=== PATIENT | female | born 1990 | race Caucasian/White ===

== ENCOUNTER 2016-05-05 10:32 | Emergency (ER) ==
[2016-05-05 10:51] VITALS: BP 123/65; TEMP 99.3; BMI 25.8
--- NOTE | 2016-05-05 11:15 | ED.PDOC ---
General ED Provider: Dr. VENU SÁNCHEZ JR Chief Complaint: Headache Stated Complaint: C/o migraine H/A. Frontal pain behind eyes. Pt states during pregnancies. Is currently 34 weeks . contact [employer] [facility]. Office closed. On-call nurse pt to ER. [ End ]99.3 105 20 98% 123/65 /10. Tylenol, last dose 6 or 7 this AM. Not helping. 34 weeks. Promethazine HCl 25 mg 04/05/16. Sodium Chloride IV. Morphine 4 mg 07/17. Morphine 4 Mg IM 02/26/16 10:11. Phenergan 25 IM 02/26/16. Pnv95/ Ferrous Fumarate/FA DAILY 11/27/15. [Diclegis Dr 10-10 mg ] 2 PO BEDTIME PRN # 8 02/26/16. [[place] 7.5-325 Tablet] 02/26/16 Time Seen by Physician: 11:09 Mode of Arrival: Walk-In Information Source: Patient Exam Limitations: No limitations Primary Care Provider: VIKTOR DSOUZA Nursing and Triage Documentation Reviewed and Agree: No Review of Systems - Review Of Systems Constitutional: Reports: No symptoms Eyes: Reports: Pain Ears, Nose, Mouth, Throat: Reports: No symptoms Respiratory: Reports: No symptoms Cardiac: Reports: No symptoms GI: Reports: No symptoms : Reports: No symptoms Musculoskeletal: Reports: No symptoms Skin: Reports: No symptoms Neurological: Reports: Headache Endocrine: Reports: No symptoms Hematologic/Lymphatic: Reports: No symptoms All Other Systems: Other Past Medical History - Past Medical History Previously Healthy: Yes Endocrine: Reports: None Cardiovascular: Reports: None Respiratory: Reports: None Hematological: Reports: None Gastrointestinal: Reports: None Genitourinary: Reports: UTI, Other (pyelonephritis-old record) Neuro/Psych: Reports: Migraine Musculoskeletal: Reports: Back Pain (with her preganacies ) Cancer: Reports: None Last Menstrual Period: 34 weeks Other Pertinent Past Medical History: skin abscess - Surgical History General Surgical History: Reports: - Family History Family History: Reports: Unknown - Social History Smoking Status: Former smoker Hx Substance Use: No Alcohol Screening: None Physical Exam - Physical Exam Appearance: Ill-appearing Pain Distress: Moderate Eyes: JOSE, EOMI, Conjunctiva clear ENT: Ears normal, Nose normal, Oropharynx normal Neck: Supple Respiratory: Airway patent, Breath sounds clear, Breath sounds equal, Respirations nonlabored, Rhonchi (has quit smoking) Cardiovascular: RRR, Pulses normal, No rub, No murmur GI/: Soft, Nontender, No masses, Bowel sounds normal, No Organomegaly, Mass ( ) Musculoskeletal: Normal strength, ROM intact, No edema, No calf tenderness Skin: Warm, Dry, Normal color Neurological: Sensation intact, Motor intact, Reflexes intact, Cranial nerves intact, Alert, Oriented Psychiatric: Affect appropriate, Mood appropriate Critical Care Note - Critical Care Note Total Time (mins): 0 Course - Course Orders, Labs, Meds: Orders Category Date Time Status Morphine Sulfate [Morphine 4 mg/ml Syringe] MEDS 05/05/16 11:17 Discontinued 4 mg IM ONCE STA Promethazine HCl [Phenergan 25 mg/ml Vial] MEDS 05/05/16 11:17 Discontinued 25 mg IM ONCE STA Medications Discontinued Medications Generic Name Dose Route Start Last Admin Trade Name Freq PRN Reason Stop Dose Admin Morphine Sulfate 4 mg 05/05/16 11:17 05/05/16 11:22 Morphine 4 Mg/Ml Syringe IM 05/05/16 11:18 4 mg ONCE STA Administration Promethazine HCl 25 mg 05/05/16 11:17 05/05/16 11:22 Phenergan 25 Mg/Ml Vial IM 05/05/16 11:18 25 mg ONCE STA Administration Vital Signs: Temp Pulse Resp BP Pulse Ox 05/05/16 10:34 99.3 F 105 H 20 123/65 98 Departure - Departure Time of Disposition: 11:19 Disposition: HOME SELF-CARE Discharge Problem: Headache, Instructions: Migraine Headache (ED) Condition: Good Pt referred to PMD for follow-up: Yes Additional Instructions: call OB in morning for follow up - recommend travel to office tomorrow for medications to treat headaches return if mental changes if headache not improved or if fever over 101.0 may follow up with OBGYN may follow up with [facility] (added norco at patient request- states OK with OBGYN) Prescriptions: Hydrocodone Bit/Acetaminophen [[place] 7.5-325] 1 each PO Q6HR PRN #14 tablet PRN Reason: Severe Pain Allergies/Adverse Reactions: Allergies No Known Allergies Allergy (Verified 05/05/16 10:44) Home Medications: Ambulatory Orders Pnv95/Ferrous Fumarate/FA [ Tablet] 1 each PO DAILY 11/27/15 Butalb/Acetaminophen/Caffeine [Fioricet] 1 each PO BID PRN 04/05/16 Ranitidine HCl [Zantac] 150 mg PO DAILY PRN 04/05/16 Hydrocodone Bit/Acetaminophen [[place] 7.5-325] 1 each PO Q6HR PRN #14 tablet 06/20
[2016-05-05] MEDS ORDERED: PHENERGAN 25 MG/ML VIAL IM STA (11:17)
[2016-05-05] MEDS ORDERED: MORPHINE 4 MG/ML SYRINGE IM STA (11:17)
== END 2016-05-05 11:39 | disposition home or self-care (01) ==
LOC: ED 10:32
DX: G43.909 Migraine, unspecified, not intractable, without status migrainosus (principal); Z33.1 Pregnant state, incidental
CPT/HCPCS: 96372; 99282

== ENCOUNTER 2016-06-13 21:02 | Emergency (ER) ==
[2016-06-13 21:08] VITALS: BP 149/94; TEMP 97; BMI 22.8
--- NOTE | 2016-06-13 21:29 | ED.PDOC ---
General ED Provider: Dr. DOUGLAS ERAZO Chief Complaint: Abdominal Pain Stated Complaint: I had , the Dr Gave me some Percocets, they make me loopy, i dont want to take them. no foul smelling discharge, no fever chills Time Seen by Physician: 21:26 Mode of Arrival: Walk-In Information Source: Patient Primary Care Provider: DOUGLAS [facility] Nursing and Triage Documentation Reviewed and Agree: Yes GI Complaint Exam - Abdominal Pain Complaint/Exam Onset: Gradual Symptoms Are: Still present Timing: Constant Initial Severity: Moderate Current Severity: Mild Location of Pain: Discrete Character: Reports: Dull, Aching Aggravating: Reports: Movement, Deep breaths Alleviating: Reports: None Associated Signs and Symptoms: Denies: Diaphoresis, Fever, Cough, Chest pain, Dizziness, Back pain, Constipation, Blood in stool, Dysuria, Urinary frequency, Decreased urine output, Decreased appetite, Vaginal bleeding, Vaginal discharge , Nausea, Vomiting, Diarrhea, Sore throat, Decreased activity Surgical Obstruction Risk Factors: Reports: None Abdominal Findings: Present: Abdominal distention (surgical site looks healthy, ). Absent: Pulsatile mass Differential Diagnoses: Other (post c section pain) Review of Systems - Review Of Systems Constitutional: Reports: No symptoms Eyes: Reports: No symptoms Ears, Nose, Mouth, Throat: Reports: No symptoms Respiratory: Reports: No symptoms Cardiac: Reports: No symptoms GI: Reports: Abdomen distended, Abdominal pain : Reports: No symptoms Musculoskeletal: Reports: No symptoms Skin: Reports: No symptoms Neurological: Reports: No symptoms Endocrine: Reports: No symptoms Hematologic/Lymphatic: Reports: No symptoms All Other Systems: Reviewed and Negative Past Medical History - Past Medical History Previously Healthy: Yes Endocrine: Reports: None Cardiovascular: Reports: None Respiratory: Reports: None Hematological: Reports: None Gastrointestinal: Reports: None Genitourinary: Reports: UTI, Other (pyelonephritis-old record) Neuro/Psych: Reports: Migraine Musculoskeletal: Reports: Back Pain (with her preganacies ) Cancer: Reports: None Last Menstrual Period: 07/17 Other Pertinent Past Medical History: skin abscess - Surgical History General Surgical History: Reports: (3-4 days ago) - Family History Family History: Reports: Unknown - Social History Smoking Status: Current some day smoker Smoking Cessation Counseling Time: > 3 min - 10 min Hx Substance Use: No Alcohol Screening: None - Immunizations Tetanus Shot up to Date: Yes Physical Exam - Physical Exam Appearance: Well-appearing Eyes: JOSE, EOMI, Conjunctiva clear ENT: Ears normal, Nose normal, Oropharynx normal Respiratory: Airway patent, Breath sounds clear, Breath sounds equal, Respirations nonlabored Cardiovascular: RRR, Pulses normal, No rub, No murmur GI/: Soft, Tender (surgical site is healthy, ) Musculoskeletal: Normal strength, ROM intact, No edema, No calf tenderness Skin: Warm, Dry, Normal color Neurological: Sensation intact, Motor intact, Reflexes intact, Cranial nerves intact, Alert, Oriented Psychiatric: Affect appropriate, Mood appropriate Critical Care Note - Critical Care Note Total Time (mins): 0 Course - Course Orders, Labs, Meds: Orders Category Date Time Status Hydrocodone Bit/Acetaminophen [[place] 5-325] MEDS 06/13/16 21:31 Discontinued 1 tab PO ONCE STA Medications Discontinued Medications Generic Name Dose Route Start Last Admin Trade Name Freq PRN Reason Stop Dose Admin Acetaminophen/Hydrocodone Bitart 1 tab 06/13/16 21:31 06/13/16 21:38 [place] 5-325 PO 06/13/16 21:32 1 tab ONCE STA Administration Vital Signs: Temp Pulse Resp BP Pulse Ox 06/13/16 21:04 97.0 F L 102 H 20 149/94 H 98 Departure - Departure Time of Disposition: 21:33 Disposition: HOME SELF-CARE Discharge Problem: Abdominal pain Instructions: Abdominal Pain (ED) Condition: Stable Pt referred to PMD for follow-up: Yes Additional Instructions: refused to have ct abdomen pelvis, she thinks its regular post surgical pain, please do not mix pain medications If pain is not better, and started having foul smelling discharge please come back Prescriptions: Hydrocodone/Acetaminophen [[place] 5-325 Tablet] 1 tab PO TID PRN #12 tablet PRN Reason: PAIN Allergies/Adverse Reactions: Allergies No Known Allergies Allergy (Verified 05/05/16 10:44) Home Medications: Ambulatory Orders Pnv95/Ferrous Fumarate/FA [ Tablet] 1 each PO DAILY 11/27/15 Hydrocodone/Acetaminophen [[place] 5-325 Tablet] 1 tab PO TID PRN #12 tablet 06/13 Oxycodone HCl/Acetaminophen [Percocet 10-325 mg Tablet] 1 mg PO PRN PRN Disposition Discussed With: Patient
[2016-06-13] MEDS ORDERED: NORCO 5-325 PO STA (21:31)
== END 2016-06-13 22:39 | disposition home or self-care (01) ==
LOC: ED 21:02
DX: R10.9 Unspecified abdominal pain (principal); Z98.890 Other specified postprocedural states; F17.210 Nicotine dependence, cigarettes, uncomplicated
CPT/HCPCS: 99282

== ENCOUNTER 2016-07-02 19:29 | Emergency (ER) ==
[2016-07-02 19:30] VITALS: BMI 22.8
[2016-07-02 19:33] VITALS: BP 135/75; TEMP 98.2
[2016-07-02] MEDS ORDERED: MOTRIN PO STA (19:52)
--- NOTE | 2016-07-02 20:23 | ED.PDOC ---
General ED Provider: Dr. MEETA MTZ Chief Complaint: Foot Pain/Injury Stated Complaint: Patient states she kicked the door this morning when she got angry. Pain has gotten worse with ambulation. Time Seen by Physician: 19:45 Mode of Arrival: Walk-In Information Source: Patient Exam Limitations: No limitations Primary Care [facility] Nursing and Triage Documentation Reviewed and Agree: Yes Review of Systems - Review Of Systems Constitutional: Reports: No symptoms Eyes: Reports: No symptoms Ears, Nose, Mouth, Throat: Reports: No symptoms Respiratory: Reports: No symptoms Cardiac: Reports: No symptoms GI: Reports: No symptoms : Reports: No symptoms Musculoskeletal: Reports: Joint pain Skin: Reports: No symptoms Neurological: Reports: No symptoms Endocrine: Reports: No symptoms Hematologic/Lymphatic: Reports: No symptoms All Other Systems: Reviewed and Negative Past Medical History - Past Medical History Previously Healthy: Yes Endocrine: Reports: None Cardiovascular: Reports: None Respiratory: Reports: None Hematological: Reports: None Gastrointestinal: Reports: None Genitourinary: Reports: UTI, Other (pyelonephritis-old record) Neuro/Psych: Reports: Migraine Musculoskeletal: Reports: Back Pain (with her preganacies ) Cancer: Reports: None Last Menstrual Period: BLEEDING FROM Other Pertinent Past Medical History: skin abscess - Surgical History General Surgical History: Reports: (3-4 days ago) - Family History Family History: Reports: Unknown - Social History Smoking Status: Current some day smoker Hx Substance Use: No Alcohol Screening: None Physical Exam - Physical Exam Appearance: Well-appearing Pain Distress: Moderate Neck: Supple Respiratory: Airway patent, Breath sounds clear, Breath sounds equal, Respirations nonlabored Cardiovascular: RRR, Pulses normal, No rub, No murmur GI/: Soft, Nontender, No masses, Bowel sounds normal, No Organomegaly Musculoskeletal: Limited strength, Edema Skin: Warm, Dry, Normal color Neurological: Sensation intact, Motor intact, Reflexes intact, Cranial nerves intact, Alert, Oriented Psychiatric: Anxious Interpretation - Radiology Interpretation Radiology Interpretation By: ED Physician Radiology Results: Negative Exam Interpreted: Other (foot x ray ) Critical Care Note - Critical Care Note Total Time (mins): 0 Course - Course Orders, Labs, Meds: Orders Category Date Time Status Ibuprofen [Motrin] MEDS 07/02/16 19:52 Discontinued 800 mg PO ONCE STA FOOT, RIGHT 3 VIEWS Stat RADS 07/02/16 19:52 Taken Medications Discontinued Medications Generic Name Dose Route Start Last Admin Trade Name Freq PRN Reason Stop Dose Admin Ibuprofen 800 mg 07/02/16 19:52 07/02/16 20:12 Motrin PO 07/02/16 19:53 800 mg ONCE STA Administration Vital Signs: Temp Pulse Resp BP Pulse Ox 07/02/16 19:30 98.2 F 96 H 18 135/75 97 Departure - Departure Time of Disposition: 20:20 Disposition: HOME SELF-CARE Discharge Problem: Injury of foot Instructions: Foot Sprain (ED) Condition: Good Pt referred to PMD for follow-up: Yes Additional Instructions: Keep foot elevated Follow up with PCP in 3 days Prescriptions: Meloxicam [Mobic] 15 mg PO DAILY PRN #14 tablet PRN Reason: foot pain Allergies/Adverse Reactions: Allergies No Known Allergies Allergy (Verified 07/02/16 19:33) Home Medications: Ambulatory Orders Meloxicam [Mobic] 15 mg PO DAILY PRN #14 tablet 07/02/16 Disposition Discussed With: Patient
--- NOTE | 2016-07-03 07:19 | DI ---
EXAM: Radiographs, right foot HISTORY: Initial presentation for right foot trauma. COMPARISON: None available. TECHNIQUE: Three views. FINDINGS: Bone mineralization is normal. There is no fracture or dislocation. The joint spaces ar e maintained. No focal soft tissue abnormality is seen. IMPRESSION: No fracture or dislocation.
== END 2016-07-02 20:39 | disposition home or self-care (01) ==
LOC: ED 19:29
DX: S99.921A Unspecified injury of right foot, initial encounter (principal); M79.671 Pain in right foot; W22.8XXA Striking against or struck by other objects, initial encounter; F17.210 Nicotine dependence, cigarettes, uncomplicated
CPT/HCPCS: 99283

== ENCOUNTER 2016-07-08 11:01 | Emergency (ER) ==
[2016-07-08 11:09] VITALS: BP 113/76; TEMP 97.9; BMI 21.2
--- NOTE | 2016-07-08 11:53 | ED.PDOC ---
General ED Provider: Dr. KATELYN DIETRICH Chief Complaint: Headache Stated Complaint: headache Time Seen by Physician: 11:00 Mode of Arrival: Walk-In Information Source: Patient, Family Exam Limitations: No limitations [facility] Nursing and Triage Documentation Reviewed and Agree: Yes Neurological Complaint Exam - Headache Complaint/Exam Onset: Gradual Duration: 1 day Symptoms Are: Still present Timing: Constant Episodes Lasting: Hours Worst Headache Ever: No Initial Severity: Moderate Location: Frontal, Temporal Character: Reports: Throbbing Aggravating: Reports: None Alleviating: Reports: None Associated Signs and Symptoms: Denies: Dizziness, Seizure, Nausea, Vomiting, Sinus pressure, Fever, Neck pain, Neck stiffness, Decreased LOC, Visual changes Related History: Reports: Similar episode Related Surgical History: Reports: None SAH Risk Factors: Reports: None Meningitis Risk Factors: Reports: None SDH Risk Factors: Reports: None Temporal Arteritis Risk Factors: Reports: None Normal Head CT Within Last 12 Months: No Papilledema Present: No Temporal Artery Tenderness: Present: None Sinus Tenderness: Present: None TMJ Tenderness: Present: None Glascow Coma Scale (see protocol): 15 Meningeal Signs Positive: No Pain on Passive Flexion-Positive Kernig's: No ROM Limited In: No Limitiations Focal Weakness: Present: None Focal Sensory Loss: Present: None Gait: Normal Gag Reflex Present: Yes Babinski Sign: Negative Right, Negative Left Differential Diagnoses: Migraine Review of Systems - Review Of Systems Constitutional: Reports: No symptoms Eyes: Reports: No symptoms Ears, Nose, Mouth, Throat: Reports: No symptoms Respiratory: Reports: No symptoms Cardiac: Reports: No symptoms GI: Reports: No symptoms : Reports: No symptoms Musculoskeletal: Reports: No symptoms Skin: Reports: No symptoms Neurological: Reports: Headache Endocrine: Reports: No symptoms Hematologic/Lymphatic: Reports: No symptoms All Other Systems: Reviewed and Negative Past Medical History - Past Medical History Previously Healthy: Yes Endocrine: Reports: None Cardiovascular: Reports: None Respiratory: Reports: None Hematological: Reports: None Gastrointestinal: Reports: None Genitourinary: Reports: UTI, Other (pyelonephritis-old record) Neuro/Psych: Reports: Migraine Musculoskeletal: Reports: Back Pain (with her preganacies ) Cancer: Reports: None Last Menstrual Period: 06/20 Other Pertinent Past Medical History: skin abscess - Surgical History General Surgical History: Reports: (3-4 days ago) - Family History Family History: Reports: Unknown - Social History Smoking Status: Current some day smoker Hx Substance Use: No Alcohol Screening: None - Immunizations Tetanus Shot up to Date: Yes Physical Exam - Physical Exam Appearance: Well-appearing, No pain distress, Well-nourished Eyes: JOSE, EOMI, Conjunctiva clear ENT: Ears normal, Nose normal, Oropharynx normal Respiratory: Airway patent, Breath sounds clear, Breath sounds equal, Respirations nonlabored Cardiovascular: RRR, Pulses normal, No rub, No murmur GI/: Soft, Nontender, No masses, Bowel sounds normal, No Organomegaly Musculoskeletal: Normal strength, ROM intact, No edema, No calf tenderness Skin: Warm, Dry, Normal color Neurological: Sensation intact, Motor intact, Reflexes intact, Cranial nerves intact, Alert, Oriented Psychiatric: Affect appropriate, Mood appropriate Critical Care Note - Critical Care Note Total Time (mins): 0 Course - Course Vital Signs: Temp Pulse Resp BP Pulse Ox 07/08/16 11:03 97.9 F 98 H 20 113/76 97 Departure - Departure Time of Disposition: 11:52 Disposition: HOME SELF-CARE Discharge Problem: Headache Instructions: Acute Headache (ED) Condition: Good Pt referred to PMD for follow-up: No Additional Instructions: Please call your Family Physician as soon as possible to schedule a follow-up appointment. Allergies/Adverse Reactions: Allergies No Known Allergies Allergy (Verified 07/02/16 19:33) Disposition Discussed With: Patient, Family
== END 2016-07-08 12:06 | disposition home or self-care (01) ==
LOC: ED 11:01
DX: R51 Headache (principal); F17.210 Nicotine dependence, cigarettes, uncomplicated
CPT/HCPCS: 99282

== ENCOUNTER 2016-08-07 21:18 | Emergency (ER) ==
[2016-08-07 21:24] VITALS: BP 118/80; TEMP 97.1; BMI 22.8
--- NOTE | 2016-08-07 21:29 | ED.PDOC ---
General ED Provider: Dr. VIKTOR DSOUZA-ER Chief Complaint: Tooth Problem Stated Complaint: she notes having pain--for 2 days Time Seen by Physician: 21:20 Mode of Arrival: Walk-In Information Source: Patient Exam Limitations: No limitations [facility] and Triage Documentation Reviewed and Agree: Yes EENT Complaint Exam - Dental/Oral Complaint/Exam Mechanism of Injury: No known trauma Onset/Duration: 2 days Symptoms Are: Still present Timing: Constant Initial Severity: Mild Current Severity: Moderate Location: left upper premolar Character: Reports: Dull, Aching, Throbbing Aggravating: Reports: Heat, Cold Alleviating: Reports: None Associated Signs and Symptoms: Reports: Discharge. Denies: Swelling, Fever, Foul odor, Foul taste in mouth Related History: Reports: Similar episode Cardiac Risk Factors: Reports: None, Smoking Dental/Oral Surgical History: Reports: None Tooth Findings: Present: Percussion tenderness, Gross caries Cervical Lymphadenopathy Present: No Facial Swelling Present: No Bleeding Present: No Oropharynx Findings: Absent: Clots, Active bleeding Septal Hematoma: No Foreign Body Present: No Dysphagia Present: No Drooling Present: No Asymmetrical Tonsillar Swelling Present: No Uvula Midline: Yes Gwendolyn-tonsillar Fluctuence: No Trismus Present: No Palatal Petechiae Present: No Scarlatinaform Rash Present: No Differential Diagnoses: Dental Abcess Review of Systems - Review Of Systems Constitutional: Reports: No symptoms Eyes: Reports: No symptoms Ears, Nose, Mouth, Throat: Reports: Mouth pain Respiratory: Reports: No symptoms Cardiac: Reports: No symptoms GI: Reports: No symptoms : Reports: No symptoms Musculoskeletal: Reports: No symptoms Skin: Reports: No symptoms Neurological: Reports: No symptoms Endocrine: Reports: No symptoms Hematologic/Lymphatic: Reports: No symptoms All Other Systems: Reviewed and Negative Past Medical History - Past Medical History Previously Healthy: Yes Endocrine: Reports: None Cardiovascular: Reports: None Respiratory: Reports: None Hematological: Reports: None Gastrointestinal: Reports: None Genitourinary: Reports: UTI, Other (pyelonephritis-old record) Neuro/Psych: Reports: Migraine Musculoskeletal: Reports: Back Pain (with her preganacies ) Cancer: Reports: None Last Menstrual Period: present Other Pertinent Past Medical History: skin abscess - Surgical History General Surgical History: Reports: (3-4 days ago) - Family History Family History: Reports: Unknown - Social History Smoking Status: Current some day smoker Hx Substance Use: No Alcohol Screening: None Lives: With family - Immunizations Tetanus Shot up to Date: Yes Physical Exam - Physical Exam Appearance: Well-appearing, No pain distress, Well-nourished Pain Distress: Moderate Eyes: JOSE, EOMI, Conjunctiva clear ENT: Ears normal, Nose normal Neck: Supple Respiratory: Airway patent Cardiovascular: RRR GI/: Soft, Nontender, No masses, Bowel sounds normal, No Organomegaly Musculoskeletal: Normal strength, ROM intact, No edema, No calf tenderness Skin: Warm, Dry, Normal color Neurological: Sensation intact, Motor intact, Reflexes intact, Cranial nerves intact, Alert, Oriented Psychiatric: Affect appropriate, Mood appropriate Critical Care Note - Critical Care Note Total Time (mins): 0 Course - Course Vital Signs: Temp Pulse Resp BP Pulse Ox 08/07/16 21:19 97.1 F L 99 H 20 118/80 98 Departure - Departure Time of Disposition: 21:29 Disposition: HOME SELF-CARE Discharge Problem: Toothache Instructions: Dental Abscess (ED) Condition: Good Pt referred to PMD for follow-up: Yes Additional Instructions: clindamycin 150mg tid x 7days--norco 7.5mg q 4hrs prn pain #10---see dentist heather Allergies/Adverse Reactions: Allergies No Known Allergies Allergy (Verified 08/07/16 21:23) Home Medications: Ambulatory Orders 1 [No Reported Medications] 08/07/16 Disposition Discussed With: Patient
== END 2016-08-07 21:40 | disposition home or self-care (01) ==
LOC: ED 21:18
DX: K08.89 Other specified disorders of teeth and supporting structures (principal); K02.7 Dental root caries; F17.210 Nicotine dependence, cigarettes, uncomplicated
CPT/HCPCS: 99282

== ENCOUNTER 2016-08-19 18:04 | Emergency (ER) ==
[2016-08-19 18:10] VITALS: BP 104/74; BMI 21.7
[2016-08-19] MEDS ORDERED: TORADOL IVP STA (18:34)
[2016-08-19] MEDS ORDERED: SODIUM CHLORIDE 1,000 ML IV STA (18:34)
[2016-08-19] MEDS ORDERED: ZOFRAN 4 MG/2 ML IVP STA (18:34)
--- NOTE | 2016-08-19 18:35 | ED.PDOC ---
General ED Provider: Dr. VENU SÁNCHEZ JR Chief Complaint: Fever Stated Complaint: woke up with lower back/left side hurting and fever--taking tylenol but cant keep fever down--unable to eat-[ End ]since 299 103.3 113 20 95% 104/74 10 Time Seen by Physician: 18:35 Mode of Arrival: Walk-In Information Source: Patient Exam Limitations: No limitations [facility] Documentation Reviewed and Agree: No Review of Systems - Review Of Systems Constitutional: Reports: Chills, Fever, Malaise, Weakness Eyes: Reports: No symptoms Ears, Nose, Mouth, Throat: Reports: No symptoms Cardiac: Reports: No symptoms GI: Reports: Abdominal pain, Nausea, Vomiting : Reports: Dysuria, Frequency, Flank pain Musculoskeletal: Reports: Muscle pain Skin: Reports: No symptoms Neurological: Reports: No symptoms Endocrine: Reports: No symptoms Hematologic/Lymphatic: Reports: No symptoms All Other Systems: Other Past Medical History - Past Medical History Previously Healthy: Yes Endocrine: Reports: None Cardiovascular: Reports: None Respiratory: Reports: None Hematological: Reports: None Gastrointestinal: Reports: None Genitourinary: Reports: UTI, Other (pyelonephritis-old record) Neuro/Psych: Reports: Migraine Musculoskeletal: Reports: Back Pain (with her preganacies ) Cancer: Reports: None Last Menstrual Period: now Other Pertinent Past Medical History: skin abscess - Surgical History General Surgical History: Reports: (3-4 days ago) - Family History Family History: Reports: Unknown - Social History Smoking Status: Former smoker Hx Substance Use: No Alcohol Screening: None Physical Exam - Physical Exam Appearance: Ill-appearing, Thin Ill-appearing: Moderate Pain Distress: Moderate Eyes: JOSE, EOMI, Conjunctiva clear Neck: Supple Respiratory: Airway patent, Breath sounds clear, Breath sounds equal, Respirations nonlabored Cardiovascular: RRR, Pulses normal, No rub, No murmur GI/: Soft, Tender (LEFT SIDE EXQUISITE LENDERNESS LEFT FLANK) Musculoskeletal: Normal strength, ROM intact, No edema, No calf tenderness Skin: Warm, Dry, Normal color Neurological: Sensation intact, Motor intact, Reflexes intact, Cranial nerves intact, Alert, Oriented Psychiatric: Affect appropriate, Mood appropriate Critical Care Note - Critical Care Note Total Time (mins): 20 Course - Course Hematology/Chemistry: 08/19/16 18:33 08/19/16 18:50 Orders, Labs, Meds: Lab Review 08/19/16 08/19/16 08/19/16 18:33 18:40 18:46 WBC 11.35 H RBC 3.98 L Hgb 11.0 L Hct 34.3 L MCV 86.2 MCH 27.6 MCHC 32.1 RDW Coeff of Sophia 17.2 H Plt Count 244 Immature Gran % (Auto) 0.4 Neut % (Auto) 84.5 Lymph % (Auto) 9.2 L [place] % (Auto) 5.7 Eos % (Auto) 0.1 Baso % (Auto) 0.1 Immature Gran # (Auto) 0.1 Neut # 9.6 H Lymph # 1.0 [place] # 0.7 Eos # 0.0 Baso # 0.0 Sodium Potassium Chloride Carbon Dioxide Anion Gap BUN Creatinine Estimated GFR (MDRD) BUN/Creatinine Ratio Glucose Lactic Acid 6.2 Calcium Total Bilirubin AST ALT Alkaline Phosphatase Total Protein Albumin Globulin Albumin/Globulin Ratio Amylase Lipase Procalcitonin Urine Color Yellow Urine Clarity Slightly Urine pH 7.5 Ur Specific [place] 1.020 Urine Protein 3+ Urine Glucose (UA) Negative Urine Ketones Negative Urine Blood 2+ Urine Nitrite Negative Urine Bilirubin Negative Urine Urobilinogen 1.0 Ur Leukocyte Esterase 1+ Urine Microscopic RBC 10-20 Urine Microscopic WBC 20-30 Ur Squamous Epith Cells Not present Urine Mucus 1+ Urine Test Negative H. pylori IgG Antibody 08/19/16 18:50 WBC RBC Hgb Hct MCV MCH MCHC RDW Coeff of Sophia Plt Count Immature Gran % (Auto) Neut % (Auto) Lymph % (Auto) [place] % (Auto) Eos % (Auto) Baso % (Auto) Immature Gran # (Auto) Neut # Lymph # [place] # Eos # Baso # Sodium 136 Potassium 3.7 Chloride 101 Carbon Dioxide 24 Anion Gap 14.7 BUN 11 Creatinine 0.82 Estimated GFR (MDRD) 84.00 BUN/Creatinine Ratio 13.41 Glucose 99 Lactic Acid Calcium 9.4 Total Bilirubin 0.84 AST 57 H ALT 55 Alkaline Phosphatase 106 H Total Protein 8.4 H Albumin 3.8 Globulin 4.6 Albumin/Globulin Ratio 0.83 Amylase 61 Lipase 25 Procalcitonin 0.13 Urine Color Urine Clarity Urine pH Ur Specific [place] Urine Protein Urine Glucose (UA) Urine Ketones Urine Blood Urine Nitrite Urine Bilirubin Urine Urobilinogen Ur Leukocyte Esterase Urine Microscopic RBC Urine Microscopic WBC Ur Squamous Epith Cells Urine Mucus Urine Test H. pylori IgG Antibody Negative Orders Category Date Time Status ED IV/MEDIPORT/POWERPORT .ONCE EMERGENCY 08/19/16 18:33 Active AMYLASE Stat LAB 08/19/16 18:50 Completed BLOOD CULTURE Stat LAB 08/19/16 18:40 Received CBC W/ AUTO DIFF Stat LAB 08/19/16 18:33 Completed COMPREHENSIVE METABOLIC PANEL Stat LAB 08/19/16 18:50 Completed H. PYLORI SCREEN Stat LAB 08/19/16 18:50 Completed LACTIC ACID Stat LAB 08/19/16 18:40 Completed LIPASE Stat LAB 08/19/16 18:50 Completed PROCALCITONIN Stat LAB 08/19/16 18:50 Completed URINALYSIS C & S IF INDICATED Stat LAB 08/19/16 18:46 Completed URINE CULTURE Routine LAB 08/19/16 18:45 Received URINE Stat LAB 08/19/16 18:46 Completed 0.9 % Sodium Chloride [Saline Flush] MEDS 08/19/16 18:33 Discontinued 1 syr IVF PRN PRN Ketorolac Tromethamine [Toradol] MEDS 08/19/16 18:34 Discontinued 30 mg IVP ONCE STA Levofloxacin/D5w [Levaquin] 150 ml MEDS 08/19/16 19:18 Discontinued IV .STK-MED Levofloxacin/D5w [Levaquin] 750 mg MEDS 08/19/16 19:13 Discontinued Premix 150 ml D5w 1 bag IV ONCE Morphine Sulfate [Morphine 4 mg/ml Syringe] MEDS 08/19/16 19:23 Discontinued 4 mg .ROUTE .STK-MED ONE Morphine Sulfate [Morphine 4 mg/ml Syringe] MEDS 08/19/16 19:23 Discontinued 4 mg IVP ONCE STA Ondansetron HCl/Pf [Zofran 4 mg/2 ml] MEDS 08/19/16 18:34 Discontinued 4 mg IVP ONCE STA Sodium Chloride 0.9% [Sodium Chloride] 1,000 ml MEDS 08/19/16 18:[address] ABDOMEN/PELVIS WO CONTRAST Stat RADS 08/19/16 18:33 Completed Medications Discontinued Medications Generic Name Dose Route Start Last Admin Trade Name Freq PRN Reason Stop Dose Admin Sodium Chloride 1,000 mls @ 1,000 mls/hr 08/19/16 18:34 08/19/16 18:59 Sodium Chloride IV 08/19/16 19:33 1,000 mls/hr BOLUS STA Administration Levofloxacin/Dextrose 750 mg/ 150 mls @ 100 mls/hr 08/19/16 19:13 08/19/16 19 :30 Dextrose IV 08/19/16 20:42 100 mls/hr ONCE STA Administration Ketorolac Tromethamine 30 mg 08/19/16 18:34 08/19/16 19:03 Toradol IVP 08/19/16 18:35 30 mg ONCE STA Administration Morphine Sulfate 4 mg 08/19/16 19:23 08/19/16 19:24 Morphine 4 Mg/Ml Syringe IVP 08/19/16 19:24 4 mg ONCE STA Administration Ondansetron HCl 4 mg 08/19/16 18:34 08/19/16 19:01 Zofran 4 Mg/2 Ml IVP 08/19/16 18:35 4 mg ONCE STA Administration Sodium Chloride 1 syr 08/19/16 18:33 08/19/16 19:01 Saline Flush IVF 1 syr PRN PRN Administration To flush IV Vital Signs: Temp Pulse Resp BP Pulse Ox 08/19/16 19:56 99.5 F 08/19/16 18:05 103.3 F H 113 H 20 104/74 95 Departure - Departure Time of Disposition: 19:52 Disposition: HOME SELF-CARE Discharge Problem: Complicated UTI (urinary tract infection) Instructions: Urinary Tract Infection in Women (ED) Condition: Fair Pt referred to PMD for follow-up: Yes Additional Instructions: HOME REST INCREASE FLUIDS 8-10 EIGHT OUNCE CUPS DAILY ANTIBIOTIC UNTIL GONE (LEVAQUIN NORCO FOR PAIN ZOFRAN FOR NAUSEA CALL IF NOT COVERED MAY SUBSTITUTE PHENERGAN RETURN IF FEVER OVER 101, IF WORSENING RECHECK PMD 2 WEEKS SOONER IF NOT RESOLVED Prescriptions: Hydrocodone Bit/Acetaminophen [[place] 7.5-325] 1 each PO Q6HR PRN #14 tablet PRN Reason: Severe Pain Levofloxacin [Levaquin] 500 mg PO QDAC #10 tablet Ondansetron HCl [Zofran Tab] 4 mg PO QID PRN #12 tablet PRN Reason: Nausea / Vomiting Allergies/Adverse Reactions: Allergies No Known Allergies Allergy (Verified 08/19/16 18:11) Home Medications: Ambulatory Orders Hydrocodone Bit/Acetaminophen [[place] 7.5-325] 1 each PO Q6HR PRN #14 tablet Levofloxacin [Levaquin] 500 mg PO QDAC #10 tablet 08/19/16 Ondansetron HCl [Zofran Tab] 4 mg PO QID PRN #12 tablet 08/19/16
[2016-08-19 18:53] LABS: BILIRUBIN,URINE Negative (NEGATIVE); KETONES,URINE Negative (NEGATIVE); LEUKOCYTE ESTERASE ,URINE 1+ (NEGATIVE); NITRITE,URINE Negative (NEGATIVE); PH,URINE 7.5 (5-9); PROTEIN,URINE 3+ (NEGATIVE); URINE, BLOOD 2+ (NEGATIVE)
[2016-08-19 18:56] LABS: ADD URINE MICROSCOPIC YES; URINE PREGNANCY INTERNAL QC INTERNAL QC VALID
[2016-08-19 19:08] LABS: BASOPHILS % (AUTO) 0.1 % (0.0-3.0); EOSINOPHILS % (AUTO) 0.1 % (0.0-7.0); HEMATOCRIT 34.3 % (37.0-47.0); IMMATURE GRANULOCYTE % (AUTO) 0.4 % (0.0-5.0); LYMPHOCYTES % (AUTO) 9.2 (10.0-50.0); MEAN CORPUSCULAR HEMOGLOBIN 27.6 pg (27.0-31.0); MEAN CORPUSCULAR HGB CONC 32.1 (31.8-35.4); MEAN CORPUSCULAR VOLUME 86.2 fl (81.0-99.0); MONOCYTES # (AUTO) 0.7 K/uL (0.4-2.0); MONOCYTES % (AUTO) 5.7 (0-10); NEUTROPHILS # (AUTO) 9.6 K/ul (2.0-6.9); NEUTROPHILS % (AUTO) 84.5; PLATELET COUNT 244 10^3/uL (140-440); RED BLOOD COUNT 3.98 10^6/ul (4.20-5.40); WHITE BLOOD COUNT 11.35 K/ul (4.6-10.2)
[2016-08-19] MEDS ORDERED: LEVAQUIN 750 MG in PREMIX 150 ML D5W 1 BAG IV STA (19:13)
[2016-08-19] MEDS ORDERED: LEVAQUIN 150 ML IV ONE (19:18)
[2016-08-19 19:21] LABS: H. PYLORI ANTIBODY NEGATIVE (NEGATIVE); H.PYLORI INTERNAL QC INTERNAL QC VALID
[2016-08-19] MEDS ORDERED: MORPHINE 4 MG/ML SYRINGE ONE (19:23)
[2016-08-19] MEDS ORDERED: MORPHINE 4 MG/ML SYRINGE IVP STA (19:23)
[2016-08-19 19:29] LABS: ALBUMIN 3.8 g/dL (3.4-5.0); ALBUMIN/GLOBULIN RATIO 0.83; ANION GAP 14.7; BILIRUBIN,TOTAL 0.84 mg/dL (0.00-1.20); BUN/CREATININE RATIO 13.41; CALCIUM 9.4 mg/dL (8.2-10.2); CREATININE 0.82 mg/dL (0.60-1.30); POTASSIUM 3.7 mmol/L (3.5-5.10); TOTAL PROTEIN 8.4 g/dL (6.4-8.2)
--- NOTE | 2016-08-19 19:32 | CT ---
EXAM: CT abdomen and pelvis without contrast HISTORY: Abdominal pain TECHNIQUE: Multi-slice transaxial helical with coronal and sagittal reformed images COMPARISON: CT abdomen from 05/15/2015 FINDINGS: The lung bases are free of acute airspace or interstitial opacities. The heart size is no rmal. There are no pericardial or pleural effusions. The hepatic attenuation is normal relative to the spleen. The gallbladder is present without biliar y dilatation. The pancreas and adrenal glands are normal. The spleen has normal size and attenuati on. The kidneys and ureters are normal. The nonopacified bladder is grossly normal. There are phl eboliths in the pelvis. No adnexal masses are evident. The intestines are nondilated. The appendix is not visualized with certainty. The aorta has normal caliber. No lymphadenopathy or ascites. The bones are free of suspicious osteolytic or osteoblastic lesions. IMPRESSION: 1. Nonobstructive intestinal gas pattern. Appendix not visualized. 2. Normal renal collecting systems. 3. No lymphadenopathy or ascites.
[2016-08-19 19:56] VITALS: TEMP 99.5
== END 2016-08-19 21:18 | disposition home or self-care (01) ==
LOC: ED 18:04
DX: N39.0 Urinary tract infection, site not specified (principal)
CPT/HCPCS: 36415; 80053; 81001; 81025; 82150; 83605; 83690; 84145; 85025; 86677; 87040; 87086; 87186; 96361; 96365; 96366; 96375; 99283

== ENCOUNTER 2016-08-24 11:29 | Emergency (ER) ==
[2016-08-24 11:30] VITALS: BMI 21.2
[2016-08-24 11:37] VITALS: BP 108/65; TEMP 97.8
[2016-08-24 12:06] LABS: BASOPHILS % (AUTO) 0.5 % (0.0-3.0); EOSINOPHILS # (AUTO) 0.2 K/ul (0.0-0.7); EOSINOPHILS % (AUTO) 2.5 % (0.0-7.0); HEMOGLOBIN 9.8 g/dl (12.0-16.0); IMMATURE GRANULOCYTE % (AUTO) 0.2 % (0.0-5.0); LYMPHOCYTES # (AUTO) 2.2 K/uL (0.60-3.4); LYMPHOCYTES % (AUTO) 36.7 (10.0-50.0); MEAN CORPUSCULAR HEMOGLOBIN 27.4 pg (27.0-31.0); MEAN CORPUSCULAR HGB CONC 31.6 (31.8-35.4); MEAN CORPUSCULAR VOLUME 86.6 fl (81.0-99.0); MONOCYTES # (AUTO) 0.3 K/uL (0.4-2.0); MONOCYTES % (AUTO) 4.7 (0-10); NEUTROPHILS # (AUTO) 3.3 K/ul (2.0-6.9); NEUTROPHILS % (AUTO) 55.4; PLATELET COUNT 362 10^3/uL (140-440); RED BLOOD COUNT 3.58 10^6/ul (4.20-5.40); WHITE BLOOD COUNT 5.91 K/ul (4.6-10.2)
[2016-08-24 12:15] LABS: BILIRUBIN,URINE Negative (NEGATIVE); KETONES,URINE Negative (NEGATIVE); LEUKOCYTE ESTERASE ,URINE Negative (NEGATIVE); NITRITE,URINE Negative (NEGATIVE); PH,URINE 5.5 (5-9); PROTEIN,URINE 1+ (NEGATIVE); URINE, BLOOD Trace-intact (NEGATIVE)
[2016-08-24 12:17] LABS: URINE PREGNANCY INTERNAL QC INTERNAL QC VALID
[2016-08-24 12:22] LABS: ADD URINE MICROSCOPIC YES
[2016-08-24 12:24] LABS: BACTERIA,URINE TRACE (NOT PRESENT)
[2016-08-24 12:29] LABS: ALBUMIN 3.3 g/dL (3.4-5.0); ALBUMIN/GLOBULIN RATIO 0.83; ANION GAP 14.8; BUN/CREATININE RATIO 11.68; CALCIUM 9.4 mg/dL (8.2-10.2); CREATININE 0.77 mg/dL (0.60-1.30); POTASSIUM 3.8 mmol/L (3.5-5.10); TOTAL PROTEIN 7.3 g/dL (6.4-8.2)
--- NOTE | 2016-08-24 12:43 | CT ---
Exam: CT abdomen and pelvis without contrast. Clinical indication: Abdominal pain. No further information is provided. TECHNIQUE: Axial unenhanced CT images of the abdomen and pelvis were obtained followed by coronal a nd sagittal reformats. Comparison is made to the recent study dated 08/19/2016. Findings: The study is limited due to lack of intra-abdominal fat, IV contrast, and oral contrast. There is no free intra-abdominal gas or fluid. The liver, gallbladder, adrenals, pancreas, spleen, and kidneys are grossly unremarkable, given the limitations of the study. There are no definite enlarged abdominal or pelvic lymph nodes, by size criteria. Visualization of pelvic organs are extremely limited. The bowel is grossly unremarkable. The appendix is not visualized due to the limitations of the pancho dy. The visualized portions of lower thorax are within normal limits. The visualized bony structures are unremarkable. Impression: Grossly unremarkable CT of the abdomen pelvis, given the limitations as described above.
--- NOTE | 2016-08-24 13:00 | ED.PDOC ---
General ED Provider: Dr. KATELYN DIETRICH Chief Complaint: Urinary Problem Stated Complaint: dysuria / abdominal pain Time Seen by Physician: 11:31 Mode of Arrival: Walk-In Information Source: Patient Exam Limitations: No limitations [facility] T[facility] Documentation Reviewed and Agree: Yes GI Complaint Exam - Abdominal Pain Complaint/Exam Onset: Gradual Duration: 2 days Symptoms Are: Still present Timing: Constant Initial Severity: Moderate Current Severity: Moderate Location of Pain: LLQ, Suprapubic Character: Reports: Cramping Aggravating: Reports: None Alleviating: Reports: None Associated Signs and Symptoms: Reports: Dysuria. Denies: Diaphoresis, Fever, Cough, Chest pain, Dizziness, Back pain, Constipation, Blood in stool, Urinary frequency, Decreased urine output, Decreased appetite, Vaginal bleeding, Vaginal discharge, Nausea, Vomiting, Diarrhea, Sore throat, Decreased activity Related History: Reports: Similar episode AAA Risk Factors: Reports: None Cardiac Risk Factors: Reports: None Ectopic Risk Factors: Reports: None Ovarian Torsion Risk Factors: Reports: None Surgical Obstruction Risk Factors: Reports: None Related Surgical History: Reports: None Patient Rh Status: Unknown Abdominal Findings: Present: None Review of Systems - Review Of Systems Constitutional: Reports: No symptoms Eyes: Reports: No symptoms Ears, Nose, Mouth, Throat: Reports: No symptoms Respiratory: Reports: No symptoms Cardiac: Reports: No symptoms GI: Reports: No symptoms : Reports: No symptoms Musculoskeletal: Reports: Back pain Skin: Reports: No symptoms Neurological: Reports: No symptoms Endocrine: Reports: No symptoms Hematologic/Lymphatic: Reports: No symptoms All Other Systems: Reviewed and Negative Past Medical History - Past Medical History Previously Healthy: Yes Endocrine: Reports: None Cardiovascular: Reports: None Respiratory: Reports: None Hematological: Reports: None Gastrointestinal: Reports: None Genitourinary: Reports: UTI, Other (pyelonephritis-old record) Neuro/Psych: Reports: Migraine Musculoskeletal: Reports: Back Pain (with her preganacies ) Cancer: Reports: None Last Menstrual Period: present Other Pertinent Past Medical History: skin abscess - Surgical History General Surgical History: Reports: (3-4 days ago) - Family History Family History: Reports: Unknown - Social History Smoking Status: Former smoker Hx Substance Use: No Alcohol Screening: None - Immunizations Tetanus Shot up to Date: No Physical Exam - Physical Exam Appearance: Well-appearing, No pain distress, Well-nourished Eyes: JOSE, EOMI, Conjunctiva clear ENT: Ears normal, Nose normal, Oropharynx normal Respiratory: Airway patent, Breath sounds clear, Breath sounds equal, Respirations nonlabored Cardiovascular: RRR, Pulses normal, No rub, No murmur GI/: Soft, Nontender, No masses, Bowel sounds normal, No Organomegaly Musculoskeletal: Normal strength, ROM intact, No edema, No calf tenderness Skin: Warm, Dry, Normal color Neurological: Sensation intact, Motor intact, Reflexes intact, Cranial nerves intact, Alert, Oriented Psychiatric: Affect appropriate, Mood appropriate Interpretation - Radiology Interpretation Radiology Interpretation By: Radiologist Radiology Results: No acute changes Critical Care Note - Critical Care Note Total Time (mins): 0 Course - Course Hematology/Chemistry: 08/24/16 12:00 08/24/16 12:00 Orders, Labs, Meds: Lab Review 08/24/16 08/24/16 12:00 12:05 WBC 5.91 RBC 3.58 L Hgb 9.8 L Hct 31.0 L MCV 86.6 MCH 27.4 MCHC 31.6 L RDW Coeff of Sophia 16.9 H Plt Count 362 Immature Gran % (Auto) 0.2 Neut % (Auto) 55.4 Lymph % (Auto) 36.7 [place] % (Auto) 4.7 Eos % (Auto) 2.5 Baso % (Auto) 0.5 Immature Gran # (Auto) 0.0 Neut # 3.3 Lymph # 2.2 [place] # 0.3 L Eos # 0.2 Baso # 0.0 Sodium 141 Potassium 3.8 Chloride 106 Carbon Dioxide 24 Anion Gap 14.8 BUN 9 Creatinine 0.77 Estimated GFR (MDRD) 90.00 BUN/Creatinine Ratio 11.68 Glucose 95 Calcium 9.4 Total Bilirubin 0.28 AST 22 ALT 23 Alkaline Phosphatase 89 Total Protein 7.3 Albumin 3.3 L Globulin 4.0 Albumin/Globulin Ratio 0.83 Amylase 63 Lipase 81 H Urine Color Yellow Urine Clarity Clear Urine pH 5.5 Ur Specific [place] 1.025 Urine Protein 1+ Urine Glucose (UA) Negative Urine Ketones Negative Urine Blood Trace-intact Urine Nitrite Negative Urine Bilirubin Negative Urine Urobilinogen 0.2 Ur Leukocyte Esterase Negative Urine Microscopic RBC 2-5 Urine Microscopic WBC 5-10 Ur Squamous Epith Cells 2-5 Urine Bacteria Trace Urine Mucus Trace Urine Test Negative Orders Category Date Time Status AMYLASE Stat LAB 08/24/16 12:00 Completed CBC W/ AUTO DIFF Stat LAB 08/24/16 12:00 Completed COMPREHENSIVE METABOLIC PANEL Stat LAB 08/24/16 12:00 Completed LIPASE Stat LAB 08/24/16 12:00 Completed TEST URINE [URINE ] Stat LAB 08/24/16 12:05 Completed URINALYSIS C & S IF INDICATED Stat LAB 08/24/16 12:05 Completed URINE CULTURE Stat LAB 08/24/16 12:[address] ABDOMEN/PELVIS WO CONTRAST Stat RADS 08/24/16 11:52 Completed Vital Signs: Temp Pulse Resp BP Pulse Ox 08/24/16 11:31 97.8 F 104 H 18 108/65 96 Departure - Departure Time of Disposition: 12:59 Disposition: HOME SELF-CARE Discharge Problem: Urinary symptoms Abdominal pain Qualifiers: Abdominal location: lower abdomen, unspecified Qualifier Code: (R10.30) Lower abdominal pain, unspecified Instructions: Abdominal Pain (ED) Condition: Good Pt referred to PMD for follow-up: No Additional Instructions: Please call your Family Physician as soon as possible to schedule a follow-up appointment. Allergies/Adverse Reactions: Allergies No Known Allergies Allergy (Verified 08/24/16 11:38) Home Medications: Ambulatory Orders Hydrocodone Bit/Acetaminophen [[place] 7.5-325] 1 each PO Q6HR PRN #14 tablet Levofloxacin [Levaquin] 500 mg PO QDAC #10 tablet 08/19/16 Ondansetron HCl [Zofran Tab] 4 mg PO QID PRN #12 tablet 08/19/16
[2016-08-24 13:05] LABS: BILIRUBIN,TOTAL 0.28 mg/dL (0.00-1.20)
== END 2016-08-24 13:12 | disposition home or self-care (01) ==
LOC: ED 11:29
DX: R30.0 Dysuria (principal); R10.30 Lower abdominal pain, unspecified
CPT/HCPCS: 36415; 80053; 81001; 81025; 82150; 83690; 85025; 87086; 99283

== ENCOUNTER 2016-09-30 19:58 | Emergency (ER) ==
[2016-09-30 20:00] VITALS: BP 141/94; TEMP 98; BMI 22.8
--- NOTE | 2016-09-30 20:14 | ED.PDOC ---
General ED Provider: Dr. VIKTOR DSOUZA-ER Chief Complaint: Tooth Problem Stated Complaint: my tooth really hurts Time Seen by Physician: 19:55 Mode of Arrival: Walk-In Information Source: Patient Exam Limitations: No limitations [facility] Triage Documentation Reviewed and Agree: Yes EENT Complaint Exam - Dental/Oral Complaint/Exam Mechanism of Injury: No known trauma Onset/Duration: 2 days Symptoms Are: Still present Timing: Constant Initial Severity: Mild Current Severity: Moderate Location: left upper incisor Character: Reports: Dull, Aching, Throbbing Aggravating: Reports: Heat, Cold, Chewing Alleviating: Reports: None Associated Signs and Symptoms: Reports: Swelling. Denies: Discharge, Fever, Foul odor, Foul taste in mouth Related History: Reports: Previous tooth problem Dental/Oral Surgical History: Reports: None Tooth Findings: Present: Percussion tenderness, Gross decay Cervical Lymphadenopathy Present: No Facial Swelling Present: No Bleeding Present: No Oropharynx Findings: Absent: Clots, Active bleeding Septal Hematoma: No Foreign Body Present: No Dysphagia Present: No Drooling Present: No Asymmetrical Tonsillar Swelling Present: No Uvula Midline: Yes Gwendolyn-tonsillar Fluctuence: No Trismus Present: No Palatal Petechiae Present: No Scarlatinaform Rash Present: No Differential Diagnoses: Cluster Headaches, Dental Abcess, Dental Caries, Fractured Tooth, Gingivitis Review of Systems - Review Of Systems Constitutional: Reports: No symptoms Eyes: Reports: No symptoms Ears, Nose, Mouth, Throat: Reports: Mouth pain Respiratory: Reports: No symptoms Cardiac: Reports: No symptoms GI: Reports: No symptoms : Reports: No symptoms Musculoskeletal: Reports: No symptoms Skin: Reports: No symptoms Neurological: Reports: No symptoms Endocrine: Reports: No symptoms Hematologic/Lymphatic: Reports: No symptoms All Other Systems: Reviewed and Negative Past Medical History - Past Medical History Previously Healthy: Yes Endocrine: Reports: None Cardiovascular: Reports: None Respiratory: Reports: None Hematological: Reports: None Gastrointestinal: Reports: None Genitourinary: Reports: UTI, Other (pyelonephritis-old record) Neuro/Psych: Reports: Migraine Musculoskeletal: Reports: Back Pain (with her preganacies ) Cancer: Reports: None Last Menstrual Period: 3 DAYS AGO Other Pertinent Past Medical History: skin abscess - Surgical History General Surgical History: Reports: (3-4 days ago) - Family History Family History: Reports: Unknown - Social History Smoking Status: Former smoker Hx Substance Use: No Alcohol Screening: None Lives: With family Physical Exam - Physical Exam Appearance: Well-appearing, No pain distress, Well-nourished Pain Distress: Moderate Eyes: JOSE, EOMI, Conjunctiva clear ENT: Ears normal, Nose normal, Oropharynx normal (noted tenderness left upper incisor) Respiratory: Airway patent, Breath sounds clear, Breath sounds equal, Respirations nonlabored Cardiovascular: RRR, Pulses normal, No rub, No murmur GI/: Soft, Nontender, No masses, Bowel sounds normal, No Organomegaly Musculoskeletal: Normal strength, ROM intact, No edema, No calf tenderness Skin: Warm, Dry, Normal color Neurological: Sensation intact, Motor intact, Reflexes intact, Cranial nerves intact, Alert, Oriented Psychiatric: Affect appropriate, Mood appropriate Critical Care Note - Critical Care Note Total Time (mins): 0 Course - Course Vital Signs: Temp Pulse Resp BP Pulse Ox 09/30/16 19:58 98.0 F 113 H 16 141/94 H 99 Departure - Departure Time of Disposition: 20:16 Disposition: HOME SELF-CARE Discharge Problem: Toothache Instructions: Toothache (ED) Condition: Good Pt referred to PMD for follow-up: Yes Additional Instructions: augmentin 875mg bid #14--norco 7.5mg q 4hrs prn pain #10--f/u with dentist heather Allergies/Adverse Reactions: Allergies No Known Allergies Allergy (Verified 09/30/16 20:00) Home Medications: Ambulatory Orders 1 [No Reported Medications] 09/30/16 Disposition Discussed With: Patient
== END 2016-09-30 20:23 | disposition home or self-care (01) ==
LOC: ED 19:58
DX: K02.9 Dental caries, unspecified (principal); K08.89 Other specified disorders of teeth and supporting structures
CPT/HCPCS: 99282

== ENCOUNTER 2016-10-28 12:57 | Emergency (ER) ==
--- NOTE | 2016-10-28 13:05 | ED.PDOC ---
General ED Provider: Dr. VENU SÁNCHEZ JR Chief Complaint: Tooth Problem Stated Complaint: clindamycin 150mg 7days-norco 7.5mg #10-see dentist 08/07/16. augmentin [id number]--bjyhd 7.5mg 0--f/u with dentist 09/30/16. Left upper jaw pain. States has cavity. Dr Rodriguez unable to see pt until Thursday (3 days)[ End ] since yesterday 99.9 10 20 98% 109/74 8/10 Time Seen by Physician: 13:04 Mode of Arrival: Walk-In Information Source: Patient Exam Limitations: No limitations [facility] and Triage Documentation Reviewed and Agree: Yes EENT Complaint Exam - Dental/Oral Complaint/Exam Tooth Findings: Present: Percussion tenderness (left middle molar ?15) Cervical Lymphadenopathy Present: No Facial Swelling Present: Yes Teeth Picture: 1 - tender discolored ? ant cavity Review of Systems - Review Of Systems Constitutional: Reports: Malaise Eyes: Reports: No symptoms Ears, Nose, Mouth, Throat: Reports: Mouth pain Respiratory: Reports: No symptoms Cardiac: Reports: No symptoms GI: Reports: No symptoms : Reports: No symptoms Musculoskeletal: Reports: No symptoms Skin: Reports: No symptoms Neurological: Reports: No symptoms Endocrine: Reports: No symptoms Hematologic/Lymphatic: Reports: No symptoms All Other Systems: Other Past Medical History - Past Medical History Previously Healthy: Yes Endocrine: Reports: None Cardiovascular: Reports: None Respiratory: Reports: None Hematological: Reports: None Gastrointestinal: Reports: None Genitourinary: Reports: UTI, Other (pyelonephritis-old record) Neuro/Psych: Reports: Migraine Musculoskeletal: Reports: Back Pain (with her preganacies ) Cancer: Reports: None Other Pertinent Past Medical History: skin abscess - Surgical History General Surgical History: Reports: - Family History Family History: Reports: Unknown - Social History Smoking Status: Former smoker Hx Substance Use: No Alcohol Screening: None Physical Exam - Physical Exam Appearance: Ill-appearing, Thin Pain Distress: Moderate Eyes: JOSE, EOMI, Conjunctiva clear ENT: Ears normal, Nose normal, Oropharynx normal Neck: Supple Respiratory: Airway patent, Breath sounds clear, Breath sounds equal, Respirations nonlabored Cardiovascular: RRR, Pulses normal, No rub, No murmur GI/: Soft, Nontender, No masses, Bowel sounds normal, No Organomegaly Musculoskeletal: Normal strength, ROM intact, No edema, No calf tenderness Skin: Warm, Dry, Normal color Neurological: Sensation intact, Motor intact, Reflexes intact, Cranial nerves intact, Alert, Oriented Psychiatric: Affect appropriate, Mood appropriate Critical Care Note - Critical Care Note Total Time (mins): 0 Departure - Departure Time of Disposition: 13:31 Disposition: HOME SELF-CARE Discharge Problem: Toothache Instructions: Toothache (ED) Condition: Good Pt referred to PMD for follow-up: Yes Additional Instructions: Naprosyn for pain [place] for pain not controlled clindamycin for infection follow up with dentist as scheduled Prescriptions: Hydrocodone Bit/Acetaminophen [[place] 5-325] 1 - 2 tab PO Q6HR PRN #12 tablet PRN Reason: pain Naproxen [Naprosyn] 500 mg PO Q12HR PRN #30 tablet PRN Reason: PAIN Clindamycin HCl 300 mg PO QID #40 capsule Allergies/Adverse Reactions: Allergies No Known Allergies Allergy (Verified 10/28/16 13:07) Home Medications: Ambulatory Orders Clindamycin HCl 300 mg PO QID #40 capsule 10/28/16 Hydrocodone Bit/Acetaminophen [[place] 5-325] 1 - 2 tab PO Q6HR PRN #12 tablet Naproxen [Naprosyn] 500 mg PO Q12HR PRN #30 tablet 10/28/16
[2016-10-28 13:09] VITALS: BP 109/74; TEMP 99.9; BMI 23.1
== END 2016-10-28 14:08 | disposition home or self-care (01) ==
LOC: ED 12:57
DX: K08.89 Other specified disorders of teeth and supporting structures (principal)
CPT/HCPCS: 99282

== ENCOUNTER 2016-11-09 18:59 | Emergency (ER) ==
[2016-11-09 19:06] VITALS: BP 113/83; TEMP 98.3
[2016-11-09] MEDS ORDERED: SODIUM CHLORIDE 1,000 ML IV STA (19:13)
[2016-11-09] MEDS ORDERED: MORPHINE 2 MG/ML SYRINGE IVP STA (19:14)
[2016-11-09] MEDS ORDERED: ROCEPHIN 1 GM in SODIUM CHLORIDE 50 ML IV STA (19:14)
[2016-11-09] MEDS ORDERED: ZOFRAN 4 MG/2 ML IVP STA (19:14)
[2016-11-09] MEDS ORDERED: ROCEPHIN ONE (19:17)
[2016-11-09 19:25] LABS: BASOPHILS % (AUTO) 0.1 % (0.0-3.0); EOSINOPHILS # (AUTO) 0.1 K/ul (0.0-0.7); EOSINOPHILS % (AUTO) 1.2 % (0.0-7.0); HEMATOCRIT 34.1 % (37.0-47.0); HEMOGLOBIN 11.1 g/dl (12.0-16.0); IMMATURE GRANULOCYTE % (AUTO) 0.1 % (0.0-5.0); LYMPHOCYTES # (AUTO) 2.2 K/uL (0.60-3.4); LYMPHOCYTES % (AUTO) 32.6 (10.0-50.0); MEAN CORPUSCULAR HEMOGLOBIN 28.7 pg (27.0-31.0); MEAN CORPUSCULAR HGB CONC 32.6 (31.8-35.4); MEAN CORPUSCULAR VOLUME 88.1 fl (81.0-99.0); MONOCYTES # (AUTO) 0.3 K/uL (0.4-2.0); MONOCYTES % (AUTO) 4.3 (0-10); NEUTROPHILS # (AUTO) 4.2 K/ul (2.0-6.9); NEUTROPHILS % (AUTO) 61.7; PLATELET COUNT 346 10^3/uL (140-440); RED BLOOD COUNT 3.87 10^6/ul (4.20-5.40); WHITE BLOOD COUNT 6.74 K/ul (4.6-10.2)
[2016-11-09 19:28] LABS: BILIRUBIN,URINE 1+ (NEGATIVE); KETONES,URINE 1+ (NEGATIVE); LEUKOCYTE ESTERASE ,URINE Negative (NEGATIVE); NITRITE,URINE Negative (NEGATIVE); PROTEIN,URINE 1+ (NEGATIVE); URINE, BLOOD Negative (NEGATIVE)
[2016-11-09 19:31] LABS: ADD URINE MICROSCOPIC YES; URINE PREGNANCY INTERNAL QC INTERNAL QC VALID
[2016-11-09 19:32] LABS: BACTERIA,URINE 2+ (NOT PRESENT)
[2016-11-09 19:45] LABS: ALBUMIN 4.2 g/dL (3.4-5.0); ALBUMIN/GLOBULIN RATIO 1.2; ANION GAP 18.7; BILIRUBIN,TOTAL 1.32 mg/dL (0.00-1.20); BUN/CREATININE RATIO 21.25; CALCIUM 9.3 mg/dL (8.2-10.2); CREATININE 0.8 mg/dL (0.60-1.30); POTASSIUM 3.7 mmol/L (3.5-5.10); TOTAL PROTEIN 7.7 g/dL (6.4-8.2)
--- NOTE | 2016-11-09 19:55 | CT ---
EXAM: CT abdomen and pelvis without contrast per HISTORY: Left flank pain and fever TECHNIQUE: Multi-slice transaxial helical CT. Coronal and sagittal reformatons were performed. COMPARISON: 08/24/2016 FINDINGS: The heart is normal in size. The lung bases are clear. Evaluation of the solid organs is limited without IV contrast. No evidence of hydronephrosis or ganga al calculus is seen. Spleen is normal in size. There is no definite intrahepatic biliary ductal dil ation. The gallbladder, pancreas, and adrenals appear grossly unremarkable within the confines of a noncontrast exam. The bowel is not dilated. The urinary bladder is nondistended. The uterus appears unremarkable. A rounded water density structure in the left adnexa is seen which measures 4.0 x 3.1 cm. Evaluation of the bowel is limited secondary to lack of oral contrast as well as low intra-abdominal fat. The appendix is not definitively identified. No dilated tubular structure in the right lower quadrant i s seen. IMPRESSION: 1. No acute abdominal findings. 2. No hydronephrosis or renal calculus. 3. Probable 4 cm cyst in the left ovary. Pelvic sonogram can be obtained for further evaluation if indicated. 4. Limited exam secondary to lack of contrast.
--- NOTE | 2016-11-09 20:04 | ED.PDOC ---
General ED Provider: Dr. VIKTOR DSOUZA-ER Chief Complaint: Urinary Problem Stated Complaint: it hurts to pee--lola got 101 temp Time Seen by Physician: 20:01 Mode of Arrival: Walk-In Information Source: Patient Exam Limitations: No limitations Primary Care Provider: DOUGLAS [facility]ZO[facility] Nursing and Triage Documentation Reviewed and Agree: Yes Complaint Exam - UTI Female Complaint/Exam Patient Complains of: Reports: Painful urination Onset/Duration: 2 days Symptoms Are: Still present Initial Severity: Mild Current Severity: Moderate Location of Pain: Reports: Left, Suprapubic Associated Signs and Symptoms: Reports: Fever, Flank pain. Denies: Dyspareunia , Vaginal discharge Patient Rh Status: Unknown Related History: Reports: Similar episode CVA Tenderness: Yes Suprapubic Tenderness: No Differential Diagnoses: Cystitis, Pyelonephritis, Ureteral Calculus, Other Review of Systems - Review Of Systems Constitutional: Reports: Chills, Fever Eyes: Reports: No symptoms Ears, Nose, Mouth, Throat: Reports: No symptoms Respiratory: Reports: No symptoms Cardiac: Reports: No symptoms GI: Reports: Abdominal pain : Reports: Dysuria, Frequency, Flank pain, Pain, Urgency Musculoskeletal: Reports: No symptoms Skin: Reports: No symptoms Neurological: Reports: No symptoms Endocrine: Reports: No symptoms Hematologic/Lymphatic: Reports: No symptoms All Other Systems: Reviewed and Negative Past Medical History - Past Medical History Previously Healthy: Yes Endocrine: Reports: None Cardiovascular: Reports: None Respiratory: Reports: None Hematological: Reports: None Gastrointestinal: Reports: None Genitourinary: Reports: UTI, Other (pyelonephritis-old record) Neuro/Psych: Reports: Migraine Musculoskeletal: Reports: Back Pain (with her preganacies ) Cancer: Reports: None Last Menstrual Period: 2 weeks Other Pertinent Past Medical History: skin abscess - Surgical History General Surgical History: Reports: - Family History Family History: Reports: Unknown - Social History Smoking Status: Former smoker Hx Substance Use: No Alcohol Screening: None Lives: With family - Immunizations Tetanus Shot up to Date: Yes Physical Exam - Physical Exam Appearance: Well-appearing Pain Distress: Moderate Eyes: JOSE, EOMI, Conjunctiva clear ENT: Ears normal, Nose normal, Oropharynx normal Neck: Supple Respiratory: Airway patent, Crackles Cardiovascular: RRR, Pulses normal, No rub, No murmur GI/: Soft, Nontender, No masses, Bowel sounds normal, No Organomegaly Musculoskeletal: Normal strength, ROM intact, No edema, No calf tenderness Skin: Warm, Dry, Normal color Neurological: Sensation intact, Motor intact, Reflexes intact, Cranial nerves intact, Alert, Oriented Psychiatric: Affect appropriate, Mood appropriate Interpretation - Radiology Interpretation Radiology Interpretation By: Radiologist Radiology Results: Positive Exam Interpreted: CT Scan Re-Evaluation - Re-Evaluation Time of Re-Evaluation: 20:03 Status: Improved Vital Signs Stable: Yes Pain Level: 1` Appearance: NAD Lungs: Clear Skin: Warm and Dry Neuro: Alert and Oriented X3 CV: RRR Critical Care Note - Critical Care Note Total Time (mins): 0 Course - Course Hematology/Chemistry: 11/09/16 19:22 11/09/16 19:22 Orders, Labs, Meds: Lab Review 11/09/16 11/09/16 19:12 19:22 WBC 6.74 RBC 3.87 L Hgb 11.1 L Hct 34.1 L MCV 88.1 MCH 28.7 MCHC 32.6 RDW Coeff of Sophia 15.9 H Plt Count 346 Immature Gran % (Auto) 0.1 Neut % (Auto) 61.7 Lymph % (Auto) 32.6 [place] % (Auto) 4.3 Eos % (Auto) 1.2 Baso % (Auto) 0.1 Immature Gran # (Auto) 0.0 Neut # 4.2 Lymph # 2.2 [place] # 0.3 L Eos # 0.1 Baso # 0.0 Sodium 140 Potassium 3.7 Chloride 103 Carbon Dioxide 22 Anion Gap 18.7 BUN 17 Creatinine 0.80 Estimated GFR (MDRD) 86.00 BUN/Creatinine Ratio 21.25 Glucose 88 Calcium 9.3 Total Bilirubin 1.32 H AST 23 ALT 18 Alkaline Phosphatase 83 Total Protein 7.7 Albumin 4.2 Globulin 3.5 Albumin/Globulin Ratio 1.20 Amylase 49 Lipase 23 Urine Color Yellow Urine Clarity Cloudy Urine pH 6.0 Ur Specific [place] 1.025 Urine Protein 1+ Urine Glucose (UA) Negative Urine Ketones 1+ Urine Blood Negative Urine Nitrite Negative Urine Bilirubin 1+ Urine Urobilinogen 1.0 Ur Leukocyte Esterase Negative Urine Microscopic WBC 2-5 Ur Squamous Epith Cells 10-20 Amorphous Sediment 1+ Urine Bacteria 2+ Urine Test Negative Orders Category Date Time Status IV [ED IV/MEDIPORT/POWERPORT] .ONCE EMERGENCY 11/09/16 19:13 Active AMYLASE Stat LAB 11/09/16 19:22 Completed BLOOD CULTURE Stat LAB 11/09/16 19:22 Received CBC W/ AUTO DIFF Stat LAB 11/09/16 19:22 Completed COMPREHENSIVE METABOLIC PANEL Stat LAB 11/09/16 19:22 Completed LIPASE Stat LAB 11/09/16 19:22 Completed URINALYSIS C & S IF INDICATED Stat LAB 11/09/16 19:12 Completed URINE CULTURE Stat LAB 11/09/16 19:12 Received URINE Stat LAB 11/09/16 19:12 Completed 0.9 % Sodium Chloride [Saline Flush] MEDS 11/09/16 19:13 Ordered 1 syr IVF PRN PRN Ceftriaxone Sodium [Rocephin] MEDS 11/09/16 19:17 Discontinued 1 gm .ROUTE .STK-MED ONE Ceftriaxone Sodium [Rocephin] 1 gm MEDS 11/09/16 19:14 Discontinued 0.9 % Sodium Chloride [Sodium Chloride] 50 ml IV ONCE Morphine Sulfate [Morphine 2 mg/ml Syringe] MEDS 11/09/16 19:14 Discontinued 2 mg IVP ONCE STA Ondansetron HCl/Pf [Zofran 4 mg/2 ml] MEDS 11/09/16 19:14 Discontinued 4 mg IVP ONCE STA Sodium Chloride 0.9% [Sodium Chloride] 1,000 ml MEDS 11/09/16 19:13 Active IV 100 mls/hr CT ABDOMEN/PELVIS WO CONTRAST Stat RADS 11/09/16 19:14 Completed Medications Generic Name Dose Route Start Last Admin Trade Name Freq PRN Reason Stop Dose Admin Sodium Chloride 1,000 mls @ 100 mls/hr 11/09/16 19:13 11/09/16 19:50 Sodium Chloride IV 11/10/16 05:12 100 mls/hr .Q10H STA Administration Sodium Chloride 1 syr 11/09/16 19:13 Saline Flush IVF PRN PRN To flush IV Discontinued Medications Generic Name Dose Route Start Last Admin Trade Name Freq PRN Reason Stop Dose Admin Ceftriaxone Sodium 1 gm/ 50 mls @ 75 mls/hr 11/09/16 19:14 11/09/16 19:46 Sodium Chloride IV 11/09/16 19:53 75 mls/hr ONCE STA Administration Morphine Sulfate 2 mg 11/09/16 19:14 07/09/17 19:44 Morphine 2 Mg/Ml Syringe IVP 11/09/16 19:15 2 mg ONCE STA Administration Ondansetron HCl 4 mg 11/09/16 19:14 11/09/16 19:45 Zofran 4 Mg/2 Ml IVP 11/09/16 19:15 4 mg ONCE STA Administration Vital Signs: Temp Pulse Resp BP Pulse Ox 11/09/16 19:01 98.3 F 95 H 20 113/83 96 Departure - Departure Time of Disposition: 20:03 Disposition: HOME SELF-CARE Discharge Problem: Urinary tract infectious disease, Ovarian cyst Instructions: Urinary Tract Infection in Women (ED) Condition: Good Pt referred to PMD for follow-up: Yes Additional Instructions: cipro 500mg bid x 7days--norco 5mg q 4hrs prn pain #10--talk to your ob doctor tomorrow about the ovarian cyst Allergies/Adverse Reactions: Allergies No Known Allergies Allergy (Verified 11/09/16 19:06) Home Medications: Ambulatory Orders 1 [No Reported Medications] 11/09/16 Disposition Discussed With: Patient
== END 2016-11-09 20:45 | disposition home or self-care (01) ==
LOC: ED 18:59
DX: N39.0 Urinary tract infection, site not specified (principal); N83.202 Unspecified ovarian cyst, left side
CPT/HCPCS: 36415; 80053; 81001; 81025; 82150; 83690; 85025; 87040; 87086; 96361; 96365; 96374; 96375; 99283

== ENCOUNTER 2016-12-14 17:25 | Emergency (ER) ==
[2016-12-14 17:33] VITALS: BP 130/86; TEMP 98.5; BMI 21.6
[2016-12-14] MEDS ORDERED: TORADOL IM STA (17:40)
--- NOTE | 2016-12-14 17:44 | ED.PDOC ---
General ED Provider: Dr. DOUGLAS ERAZO Chief Complaint: Back Pain Stated Complaint: Patient fell and injure the bottom on thursday, ever since hurts to walk and sit, has h/o sacral bone fracture Time Seen by Physician: 17:42 Mode of Arrival: Walk-In Information Source: Patient Primary Care Provider: VIKTOR DSOUZA Nursing and Triage Documentation Reviewed and Agree: Yes Musculoskeletal Complaint Exam - Hip/Pelvis Complaint/Exam Location of Pain: Reports: Pelvis Mechanism of Injury: Reports: Trauma Symptoms Are: Still present Initial Severity: Moderate Current Severity: Moderate Location: Reports: Discrete Character: Reports: Aching, Throbbing Aggravating: Reports: Movement, Weight bearing Alleviating: Reports: None Associated Signs and Symptoms: Denies: Swelling, Redness, Bruising, Fever, Weakness, Dizziness, Syncope, Abdominal pain, Knee pain Related History: Reports: Similar episode Able to Bear Weight: Yes Septic Arthritis Risk Factors: Reports: None Related Surgical History: Reports: None Differential Diagnoses: Contusion, Fracture, Sprain Review of Systems - Review Of Systems Constitutional: Reports: No symptoms Eyes: Reports: No symptoms Ears, Nose, Mouth, Throat: Reports: No symptoms Respiratory: Reports: No symptoms Cardiac: Reports: No symptoms GI: Reports: No symptoms : Reports: No symptoms Musculoskeletal: Reports: Back pain, Joint pain Skin: Reports: No symptoms Neurological: Reports: No symptoms Endocrine: Reports: No symptoms Hematologic/Lymphatic: Reports: No symptoms All Other Systems: Reviewed and Negative Past Medical History - Past Medical History Previously Healthy: Yes Endocrine: Reports: None Cardiovascular: Reports: None Respiratory: Reports: None Hematological: Reports: None Gastrointestinal: Reports: None Genitourinary: Reports: UTI, Other (pyelonephritis-old record) Neuro/Psych: Reports: Migraine Musculoskeletal: Reports: Back Pain (with her preganacies ) Cancer: Reports: None Last Menstrual Period: 2 days ago Other Pertinent Past Medical History: skin abscess - Surgical History General Surgical History: Reports: - Family History Family History: Reports: Unknown - Social History Smoking Status: Former smoker Hx Substance Use: No Alcohol Screening: None Physical Exam - Physical Exam Appearance: Ill-appearing, Thin Pain Distress: Moderate Eyes: JOSE, EOMI, Conjunctiva clear ENT: Ears normal, Nose normal, Oropharynx normal Respiratory: Airway patent, Breath sounds clear, Breath sounds equal, Respirations nonlabored Cardiovascular: RRR, Pulses normal, No rub, No murmur GI/: Soft, Nontender, No masses, Bowel sounds normal, No Organomegaly Musculoskeletal: Limited ROM, Limited strength Skin: Warm, Dry, Normal color Neurological: Sensation intact, Motor intact, Reflexes intact, Cranial nerves intact, Alert, Oriented Psychiatric: Affect appropriate, Mood appropriate Interpretation - Radiology Interpretation Radiology Interpretation By: Radiologist Radiology Results: Negative Exam Interpreted: CT Scan Critical Care Note - Critical Care Note Total Time (mins): 0 Course - Course Orders, Labs, Meds: Lab Review 12/14/16 17:50 Urine Test Negative Orders Category Date Time Status URINE Stat LAB 12/14/16 17:50 Completed Ketorolac Tromethamine [Toradol] MEDS 12/14/16 17:40 Discontinued 60 mg IM ONCE STA CT PELVIS W/O CONTRAST Stat RADS 12/14/16 17:40 Completed Medications Discontinued Medications Generic Name Dose Route Start Last Admin Trade Name Freq PRN Reason Stop Dose Admin Ketorolac Tromethamine 60 mg 12/14/16 17:40 12/14/16 17:53 Toradol IM 12/14/16 17:41 60 mg ONCE STA Administration Vital Signs: Temp Pulse Resp BP Pulse Ox 12/14/16 17:26 98.5 F 110 H 20 130/86 99 Departure - Departure Time of Disposition: 18:35 Disposition: HOME SELF-CARE Discharge Problem: Backache Instructions: Low Back Strain (ED) Condition: Good Pt referred to PMD for follow-up: No Additional Instructions: rest hot pack take meds with food Prescriptions: Cyclobenzaprine HCl [Flexeril] 5 mg PO BID #14 tablet Hydrocodone/Acetaminophen [[place] 5-325 Tablet] 1 tab PO TID PRN #12 tablet PRN Reason: PAIN Allergies/Adverse Reactions: Allergies No Known Allergies Allergy (Verified 12/14/16 17:29) Home Medications: Ambulatory Orders Cyclobenzaprine HCl [Flexeril] 5 mg PO BID #14 tablet 12/14/16 Hydrocodone/Acetaminophen [[place] 5-325 Tablet] 1 tab PO TID PRN #12 tablet 12/14 Disposition Discussed With: Patient
[2016-12-14 17:59] LABS: URINE PREGNANCY INTERNAL QC INTERNAL QC VALID
--- NOTE | 2016-12-14 18:28 | CT ---
EXAM: CT of the pelvis without contrast History: Pelvic trauma. Technique: Multiplanar CT images through the pelvis were obtained without the administration of IV contrast Findings: No bladder wall thickening. Scattered colonic stool. Tampon seen in place within the va ginal/cervical region. Bilateral sacroiliac joints are intact. Bilateral hip joints are intact. No acute fracture or disl ocation. Small focus of subcutaneous edema and air within the subcutaneous soft tissues superior to the left hip possibly from injection. Impression: No acute osseous abnormality.
== END 2016-12-14 18:38 | disposition home or self-care (01) ==
LOC: ED 17:25
DX: M54.5 Low back pain (principal); R10.2 Pelvic and perineal pain; W19.XXXA Unspecified fall, initial encounter
CPT/HCPCS: 81025; 96372; 99283

== ENCOUNTER 2017-12-08 15:32 | Emergency (ER) | payer OTHER ==
[2017-12-08 15:37] VITALS: BP 114/75; BMI 21.5
--- NOTE | 2017-12-08 16:39 | ED.PDOC ---
General ED Provider: Dr. VIKTOR JJ Chief Complaint: Tooth Problem Stated Complaint: Severe Dental Pain and upper gum pain in midline. Onset 24 hours with progressive worsening. Pain shooting up wards Time Seen by Physician: 16:30 Mode of Arrival: Walk-In Information Source: Patient Exam Limitations: No limitations Primary Care Provider: LESLI ANGEL Nursing and Triage Documentation Reviewed and Agree: Yes Does patient meet sepsis criteria?: No System Inflammatory Response Syndrome: Temp 101F or Greater, Pulse >90 BPM, Not Applicable Sepsis Protocol: For patient's 13 years and over: Temp is 96.8 and below OR 101 and greater Pulse >90 BPM Resp >20/minute Acutely Altered Mental Status Are patient's symptoms suggestive of a new infection, such as: -Pneumonia -Skin, Soft Tissue -Endocarditis -UTI -Bone, Joint Infection -Implantable Device -Acute Abdominal Infection -Wound Infection -Meningitis -Blood Stream Catheter Infection -Unknown EENT Complaint Exam - Dental/Oral Complaint/Exam Mechanism of Injury: No known trauma Symptoms Are: Still present Timing: Constant Initial Severity: Moderate Current Severity: Severe Character: Reports: Aching, Throbbing Aggravating: Reports: Cold, Chewing, Exertion Alleviating: Reports: None Associated Signs and Symptoms: Reports: Swelling, Fever, Foul taste in mouth Related History: Reports: Previous tooth problem. Denies: Similar episode Cardiac Risk Factors: Reports: None Dental/Oral Surgical History: Reports: None Tooth Findings: Present: Percussion tenderness, Gross decay, Gross caries, Abcess, Cellulitis Cervical Lymphadenopathy Present: Yes Facial Swelling Present: Yes Bleeding Present: No Septal Hematoma: No Foreign Body Present: No Dysphagia Present: No Drooling Present: No Asymmetrical Tonsillar Swelling Present: No Uvula Midline: Yes Gwendolyn-tonsillar Fluctuence: No Trismus Present: No Palatal Petechiae Present: No Lesions: Absent: Lip, Gums, Tongue, Buccal Mucosa, Pharynx Exanthem: Absent: Lip, Gums, Tongue, Buccal Mucosa, Pharynx Vesicles: Absent: Lip, Gums, Tongue, Buccal Mucosa, Pharynx Differential Diagnoses: Dental Abcess, Dental Caries Review of Systems - Review Of Systems Constitutional: Reports: No symptoms, Fever Eyes: Reports: No symptoms Ears, Nose, Mouth, Throat: Reports: No symptoms, Mouth pain Respiratory: Reports: No symptoms Cardiac: Reports: No symptoms GI: Reports: No symptoms : Reports: No symptoms Musculoskeletal: Reports: No symptoms Skin: Reports: No symptoms Neurological: Reports: No symptoms Endocrine: Reports: No symptoms Hematologic/Lymphatic: Reports: No symptoms All Other Systems: Reviewed and Negative Past Medical History - Past Medical History Previously Healthy: Yes Endocrine: Reports: None Cardiovascular: Reports: None Respiratory: Reports: None Hematological: Reports: None Gastrointestinal: Reports: None Genitourinary: Reports: UTI, Other (pyelonephritis-old record) Neuro/Psych: Reports: Migraine Musculoskeletal: Reports: Back Pain (with her preganacies ) Cancer: Reports: None Last Menstrual Period: 1.5 weeks ago Other Pertinent Past Medical History: skin abscess - Surgical History General Surgical History: Reports: - Family History Family History: Reports: Unknown - Social History Smoking Status: Former smoker Hx Substance Use: No Alcohol Screening: None Physical Exam - Physical Exam Appearance: Ill-appearing, Thin Ill-appearing: Moderate Pain Distress: Severe Eyes: JOSE, EOMI, Conjunctiva clear ENT: Erythema (along maxillary gingival line and tenderness to palpation ) Neck: Supple Respiratory: Airway patent, Breath sounds clear, Breath sounds equal Cardiovascular: RRR, Pulses normal, No rub, No murmur GI/: Soft, Nontender, No masses Musculoskeletal: Normal strength, ROM intact, No edema Skin: Dry, Normal color Neurological: Sensation intact, Motor intact Psychiatric: Affect appropriate, Mood appropriate, Anxious Critical Care Note - Critical Care Note Total Time (mins): 0 Course - Course Hematology/Chemistry: 12/08/17 16:56 12/08/17 16:56 Vital Signs: Temp Pulse Resp BP Pulse Ox 12/08/17 15:33 101.2 F H 113 H 18 114/75 97 Departure - Departure Time of Disposition: 18:30 Disposition: HOME SELF-CARE Discharge Problem: Dental abscess Instructions: Dental Abscess (ED) Condition: Fair Pt referred to PMD for follow-up: Yes (2 days) IPMP verified?: No Additional Instructions: Rinse mouth with warm salt water several times daily Follow up with PCP Take medication as prescribed Prescriptions: Hydrocodone/Acetaminophen [[place] 5-325 Tablet] 1 each PO Q6HR PRN #14 tablet PRN Reason: severe dental pain Clindamycin HCl 300 mg PO QID #28 capsule Allergies/Adverse Reactions: Allergies No Known Allergies Allergy (Verified 12/08/17 15:38) Home Medications: Ambulatory Orders Clindamycin HCl 300 mg PO QID #28 capsule 12/08/17 Hydrocodone/Acetaminophen [[place] 5-325 Tablet] 1 each PO Q6HR PRN #14 tablet 11/18 Disposition Discussed With: Patient
[2017-12-08] MEDS ORDERED: SODIUM CHLORIDE 500 ML IV STA (16:45)
[2017-12-08] MEDS ORDERED: SODIUM CHLORIDE 1,000 ML IV STA (16:46)
[2017-12-08] MEDS ORDERED: UNASYN 3 GM in SODIUM CHLORIDE 100 ML IV STA (16:47)
[2017-12-08] MEDS ORDERED: TORADOL IVP STA (16:47)
[2017-12-08] MEDS ORDERED: UNASYN ONE (17:24)
[2017-12-08] MEDS ORDERED: TYLENOL PO STA (18:51)
[2017-12-08 18:53] VITALS: TEMP 98.1
== END 2017-12-08 18:58 | disposition home or self-care (01) ==
LOC: ED 15:32
DX: K04.7 Periapical abscess without sinus (principal); K02.7 Dental root caries
CPT/HCPCS: 36415; 80053; 83605; 84145; 85025; 85651; 87040; 96361; 96366; 96374; 99283

== ENCOUNTER 2018-07-15 14:27 | Emergency (ER) | payer MEDICAID, OTHER ==
[2018-07-15 14:31] VITALS: BP 116/79; TEMP 98.5; BMI 19.5
== END 2018-07-15 16:35 | disposition left against medical advice (07) ==
LOC: ED 14:27
DX: M54.2 Cervicalgia (principal)
CPT/HCPCS: 99281